=== PATIENT | female | born 1995 | race Caucasian/White ===

== ENCOUNTER 2017-05-28 16:15 | Inpatient (IN) | payer OTHER ==
[2017-05-28] MEDS ORDERED: Acetaminophen 500 MG TAB PO PRN (17:03)
[2017-05-28] MEDS ORDERED: Promethazine HCl 25 MG/ML VIAL IM PRN (17:03)
[2017-05-28] MEDS ORDERED: Ondansetron HCl/PF 4 MG/2 ML Vial IVP PRN (17:03)
[2017-05-28] MEDS: Lactated Ringer's 1,000 ML IV SCH ×2 (17:05→18:14)
[2017-05-28] MEDS ORDERED: Lidocaine 1% (PF) 30 ML VIAL ONE (17:14)
--- NOTE | 2017-05-28 17:20 | PDOC.LDHP ---
Labor and Delivery H&P Chief complaint: other (Bleeding) HPI: 22 y/o G1 at 33w2d, patient of Dr. Stern, presents with vaginal bleeding. Patient reports she had a sharp pain around 11 that resolved and then started bleeding. She reports soaking a pad. Denies any intercourse or trauma. Has had some mild low back pain but denies any LOF, ctx, or decreased FM. ROS neg for HEENT, cv, pulm, gi, gu, neuro, psych, skin, musculoskeletal or constitutional symptoms other than mentioned above. OB History Details: First Current complications: none Past Medical History: Denies Current medications: pre-[place] vitamins Previous surgical history: none, other ([place] teeth extraction) Allergies/Adverse Reactions: Allergies Allergy/AdvReac Type Severity Reaction Status Date / Time Sulfa (Sulfonamide Allergy Intermediate Hives Verified 05/28/17 17:25 Antibiotics) Social history: none - Physical Exam Vital signs reviewed and normal: yes General: NAD Lungs: nonlabored breathing Abdomen: gravid Extremeties: no edema FHT: category 1 (150s, mod variability, + accels, no decels) [place] contractions every: irregular - Vaginal Exam cm dilated: 0 (visually closed) Effacement: 0% Station: -3 - Assessment 22 y/o G1 at 33w2d with vaginal bleeding and contractions. No e/o SROM , abruption at this time. status reassuring with reactive NST and normal MICHAEL. Placenta appears anterior/fundal with no e/o previa on bedside ultrasound. - Plan Plan: observation in L&D -: Will do pad counts and start IV fluids for ctx. Celestone 12mg IV ordered q 24 hours. T&S, H/H, KB ordered. Discussed with Dr. Stern.
[2017-05-28 17:30] LABS: Hematocrit 33.4 % (36.0-47.0); Mean Platelet Volume 7.3 fL (7.4-10.4); Red Blood Cell (RBC) Count 3.61 mill/uL (4.20-5.40); White Blood Cell (WBC) Count 14.3 thou/uL (4.8-10.8)
[2017-05-28 17:39] VITALS: BMI 26.6
[2017-05-28] MEDS: Betamet Acet/Betamet Na Ph 30 MG/5 ML VIAL IM SCH (18:13)
[2017-05-29] MEDS: Lactated Ringer's 1,000 ML IV SCH ×2 (00:28→08:07)
--- NOTE | 2017-05-29 08:45 | PDOC.LDPN ---
Labor & Delivery Progress Note - Subjective Subjective: comfortable (Denies feeling any ctx. No bright red bleeding, only small amount of brown blood on pad overnight. Good FM. No LOF. ) - Objective Vital signs reviewed and normal: yes General: NAD Uterine fundus: non tender SVE: deferred, cx closed yesterday on exam FHT: category 1 (140s, mod so, +accels, no decels ) [place] contractions every: occasional ctx, pt does not feel them - Assessment (1) 33 weeks gestation of Code(s): Z3A.33 - 33 WEEKS GESTATION OF Current Visit: Yes Status : Acute (2) Vaginal bleeding in Code(s): O46.90 - ANTEPARTUM HEMORRHAGE, UNSPECIFIED, UNSPECIFIED TRIMESTER Current Visit: Yes Status: Acute -: Rhogam today Complete abruption labs today. No clinical suspicion for abruption at this time , however, for completeness. Official sono today Monitor today and plan for d/c home if no bleeding today and s/p BMTZ course. Continue IVF.
[2017-05-29 11:37] LABS: Fibrinogen 567 mg/dL (253-463)
--- NOTE | 2017-05-29 14:31 | ULT ---
ULTRASOND OB COMPLETE STANDARD AND ULTRASOUND BIOPHYSICAL PROFILE: HISTORY: Followup bleeding. COMPARISON: None. TECHNIQUE: Real-time, holbrook scale, and color evaluation of the gravid uterus performed with a curvilinear transd ucer. FINDINGS: The placenta is anterior and appears normal. Single viable intrauterine with average ultr asound age 34 week 2 day. Estimated date of delivery is 07/08/17. Estimated weight is 5 poun ds 0 ounce, 53rd percentile. Cervical length is 3.3 cm. heart rate documented at 130 b.p.m. Biparietal diameter 35 weeks 1 day, 8.66 cm Head circumference 35 weeks 1 day, 30.84 cm Abdominal circumference 33 weeks 2 days,29.32 cm Femur length 33 weeks 5 days, 6.52 cm Biophysical profile score is 8/8. position is vertex. Placenta is anterior. Amniotic fluid index is 9.1. IMPRESSION: 1. Biophysical profile score 8/8. 2. Single viable intrauterine with average ultrasound age 34 weeks 2 days, estimated date of delivery 07/08/17. 3. Estimated weight is 5 pounds 0 ounces, 53rd percentile. POS: [facility]
[2017-05-29 14:48] VITALS: TEMP 98.5
[2017-05-29] MEDS: Betamet Acet/Betamet Na Ph 30 MG/5 ML VIAL IM SCH (18:30)
--- NOTE | 2017-05-30 02:45 | DIS ---
DATE OF ADMISSION: 05/28/2017 DATE OF DISCHARGE: 05/29/2017 ADMISSION DIAGNOSES: 1. A 33-week intrauterine . 2. Vaginal bleeding affecting in the third trimester. 3. Rh negative status. DISCHARGE DIAGNOSES: 1. A 33-week intrauterine . 2. Vaginal bleeding affecting in the third trimester. 3. Rh negative status. ADMITTING PHYSICIAN: Daniella Ansari M.D. DISCHARGING PHYSICIAN: Kristi Stern D.O. BRIEF HOSPITAL COURSE: Ms. Cecilia Foy is a 22-year-old G1, P0 at 33 weeks and 2 days, who underw ent evaluation and observation due to vaginal bleeding in . Patient was observed overnight and given IV fluids. She did have contractions, although they were not persistent and she had progressed into labor. The patient was evaluated by Dr. Ansari, noting a small amount of vaginal bleeding on exam. However, she has not had any additional bleeding throughout her observ ation, with the exception of a small amount of brown discharge. status remained reassuring wi th a BPP of 8/8 and a normal appearing placenta on sonogram today. The heart tone evaluation has also remained reactive. The patient remains asymptomatic without any pain. Her laboratory asse ssment was normal with negative placental abruption labs and a negative Kleihauer-Betke test. The p atient was given RhoGAM during her stay due to Rh negative. She was also given a course of betameth asone for lung maturity due to the vaginal bleeding at 33 weeks' gestation. As stated above, the patient has remained quiescent throughout the day and fetus was remained reassuring and she was stable for discharge home. FOLLOWUP: The patient will receive follow up in 3-5 days. ACTIVITY: Reviewed the importance of pelvic rest. No heavy lifting, pushing or pulling and recomme nded resting for the next few days at home. MEDICATIONS: Continue vitamins. DIET: Regular diet. DISPOSITION: Discharged to home.
== END 2017-05-29 19:00 | disposition home or self-care (01) | DRG 782 ==
LOC: L&D/OP 16:15 → L&D 05-29 01:24
PROVIDERS: ADMIT Obstetrics & Gynecology; ATTEND Obstetrics & Gynecology
PROC: 3E0334Z Introduction of Serum, Toxoid and Vaccine into Peripheral Vein, Percutaneous Approach (ICD-10-PCS; principal; 2017-05-29)
DX: O46.93 Antepartum hemorrhage, unspecified, third trimester (principal); O60.03 Preterm labor without delivery, third trimester; O36.0930 Maternal care for other rhesus isoimmunization, third trimester, not applicable or unspecified; Z3A.33 33 weeks gestation of pregnancy
CPT/HCPCS: 36415; 76805; 76815; 76819; 85027; 85362; 85384; 85460; 86850; 86870; 86900; 86901; 90384; 96372; A4216; J0702; J2001

== ENCOUNTER 2017-07-08 14:30 | Day surgery (SDC) | payer OTHER ==
[2017-07-08 15:02] VITALS: BMI 28.2
[2017-07-08 15:32] VITALS: BP 114/60; TEMP 98
[2017-07-08 15:34] LABS: Amnisure Test No Membranes Rupture (No Rupture)
[2017-07-08] MEDS ORDERED: FLU VACC QS2017-18 36 mo. & older 0.5 ML SYRINGE IM ONE (18:00)
== END 2017-07-08 15:55 | disposition home or self-care (01) ==
LOC: L&D/OP 14:30
PROVIDERS: ATTEND Obstetrics & Gynecology
DX: O26.899 Other specified pregnancy related conditions, unspecified trimester (principal); Z88.2 Allergy status to sulfonamides; Z79.899 Other long term (current) drug therapy; Z3A.00 Weeks of gestation of pregnancy not specified
CPT/HCPCS: 84112

== ENCOUNTER 2017-07-17 23:08 | Inpatient (IN) | payer OTHER ==
[2017-07-17 23:39] VITALS: BMI 29.3
[2017-07-18 00:11] LABS: Amnisure Test RUPTURE DETECTED (No Rupture)
[2017-07-18] MEDS ORDERED: Lidocaine 1% (PF) 30 ML VIAL SC PRN (00:23)
[2017-07-18] MEDS ORDERED: Ibuprofen 800 MG TAB PO PRN (00:23)
[2017-07-18] MEDS ORDERED: LR / Pitocin 40 units/1000 ml 1,000 ML IV PRN (00:23)
[2017-07-18] MEDS ORDERED: Ondansetron HCl/PF 4 MG/2 ML Vial IVP PRN ×3 (00:23→20:38)
[2017-07-18] MEDS ORDERED: Lactated Ringer's 1,000 ML IV SCH (00:30)
[2017-07-18] MEDS ORDERED: LR 500 ML/Oxytocin 10 units 500 ML IV SCH ×2 (00:30)
[2017-07-18 01:17] LABS: Hematocrit 33.6 % (36.0-47.0); Mean Platelet Volume 8.1 fL (7.4-10.4); Red Blood Cell (RBC) Count 3.67 mill/uL (4.20-5.40); White Blood Cell (WBC) Count 17.6 thou/uL (4.8-10.8)
[2017-07-18] MEDS ORDERED: Fentanyl 4 mcg/Marc 0.1% Cadd 100 ML ONE (01:44)
[2017-07-18] MEDS: Lactated Ringer's 1,000 ML IV SCH ×3 (02:06→21:42)
[2017-07-18] MEDS ORDERED: diphenhydrAMINE 50 MG/ML VIAL IVP PRN (02:35)
[2017-07-18] MEDS ORDERED: Naloxone HCl 0.4 mg/ml Vial IVP PRN ×2 (02:35)
[2017-07-18] MEDS ORDERED: Lactated Ringer's 500 ML IV PRN (02:35)
[2017-07-18] MEDS ORDERED: Eucerin (Mineral Oil/Petrolatum,White) 30 gm Jar TOP PRN (02:35)
[2017-07-18] MEDS ORDERED: ePHEDrine/0.9% NaCl/PF SYRINGE 50 mg/10 ml SLOW IVP PRN (02:35)
[2017-07-18] MEDS ORDERED: Promethazine HCl 25 MG/ML VIAL IM PRN ×2 (02:35→20:38)
[2017-07-18] MEDS ORDERED: Communication Order-Pharmacy FS SCH (02:45)
[2017-07-18] MEDS: Fentanyl 4mcg/Marcaine 0.1% Cassette 100 ML EPIDURAL SCH ×2 (08:37→14:07)
[2017-07-18] MEDS ORDERED: Dextrose 5%-Lactated Ringers 1,000 ML IV SCH (09:30)
[2017-07-18] MEDS ORDERED: LR 500 ML/Oxytocin 10 units 500 ML IVPB SCH (09:30)
[2017-07-18] MEDS: Acetaminophen 325 MG TAB PO PRN ×2 (11:18→15:11)
--- NOTE | 2017-07-18 12:56 | PDOC.LDHP ---
Labor and Delivery H&P Chief complaint: loss of fluid HPI: 22yo at 40w4d c/o LOF and painful ctx. Overnight changed from 1-->5cm but has stalled out and pitocin was started at a low level. FHT have been Cat 1-2 with intermittent min btbv and occ late decels that respond to resuscitation. Recently mom spiked fever to 101 despite giving tylenol for CARBONE 30min prior. Current gestational age (weeks): 40 Grav: 1 Para: 0 Current complications: none Abnormal US findings: No Past Medical History: denies Current medications: pre- vitamins Previous surgical history: other ([place] teeth) Allergies/Adverse Reactions: Allergies Allergy/AdvReac Type Severity Reaction Status Date / Time Sulfa (Sulfonamide Allergy Intermediate Hives Verified 07/18/17 00:29 Antibiotics) - Physical Exam Vital signs reviewed and normal: yes General: NAD Heart: RRR Lungs: CTAB Abdomen: gravid Extremeties: no edema FHT: category 1 - OB Labs Blood type: O RH: negative Antibody Screen: negative HIV: negative RPR: negative HEPSAg: negative 1 hour GCT: negative GBS: negative Rubella: non-immune - Assessment L&D Assessment: term rupture in membranes - Plan Plan: admit to L&D, labor augmentation if indicated, informed consent obtained, anesthesia consult for pain management -: Antibiotics for chorioamnionitis O neg RH screening MMR prior to DC
[2017-07-18] MEDS: Ampicillin 2 GM, Syringe 5.2 ML in Sterile Water 14.8 ML SLOW IVP SCH ×2 (13:30→21:41)
[2017-07-18] MEDS ORDERED: Gentamicin Sulfate 120 MG in Premix Bag 1 BAG IVPB SCH (13:30)
[2017-07-18] MEDS ORDERED: Oxytocin 10 UNITS/ML VIAL ONE (16:10)
[2017-07-18] MEDS ORDERED: Misoprostol 200 MCG TAB ONE (16:10)
[2017-07-18 16:13] LABS: Base Excess -9.1 mEq/L (0 (+/- 2.5))
--- NOTE | 2017-07-18 16:22 | PDOC.OPDEL ---
OB Operative/Delivery Note Delivery Dr/Surgeon: David Assist: Parker Pre-Delivery Diagnosis: non-reassuring tracing, ruptured membrane Procedure/Post Delivery Dx: operative vaginal delivery (VE) Weeks gestation: 40 Anesthesia: epidural - Findings A Sex: female Weight: 7 lb 9 oz - 1 min: 8 - 5 min: 9 - Additional Findings/Plan Placenta delivered: spontaneous Repaired Obstetrical Laceration: episiotomy (mediolateral, repaired with 2-0 vicryl in usual fashion) Estimated blood loss: 300 Compilations/Other Findings: Pt C/C/+3, OA presentation, bradycardia to 60s, did not respond to resuscitation, FSE placed and confirmed FHR, vacuum called for and applied median flexing 1cm anterior to posterior fontanelle. Maternal tissue extracted and with maternal pushing efforts and contractions traction was placed on vacuum , noting descent with each pull. No popoffs, delivered in 4 contractions, total megan time was 4min. Gases sent. Post delivery plan: routine recovery
[2017-07-18] MEDS ORDERED: Ampicillin 2 GM in Sodium Chloride 0.9% 100 ML IVPB SCH (18:00)
[2017-07-18] MEDS ORDERED: diphenhydrAMINE 25 MG CAP PO PRN (20:38)
[2017-07-18] MEDS ORDERED: Lanolin Ointment 7 GM TUBE TOP PRN (20:38)
[2017-07-18] MEDS ORDERED: Benzocaine/Menthol 20-0.5% 60 ML CAN TOP PRN (20:38)
[2017-07-18] MEDS ORDERED: Preparation H Ointment 28 GM TUBE PR PRN (20:38)
[2017-07-18] MEDS ORDERED: LR / Pitocin 40 units/1000 ml 1,000 ML IV SCH (20:38)
[2017-07-18] MEDS ORDERED: Bisacodyl 10 MG SUPP PR PRN (20:38)
[2017-07-18] MEDS ORDERED: Adacel (T-DAP) 0.5 ML VIAL IM ONE (20:38)
[2017-07-18] MEDS ORDERED: HYDROcodone/Acetaminophen 5/325 mg Tablet PO PRN ×2 (20:38)
[2017-07-18] MEDS ORDERED: Milk Of Magnesia 30 ML UDCUP PO PRN (20:38)
[2017-07-18] MEDS: Ferrous Sulfate 325 MG TAB PO SCH (21:37)
[2017-07-18] MEDS: Ibuprofen 800 MG TAB PO SCH (21:46)
[2017-07-18] MEDS: Docusate (Surfak) 240 MG CAP PO SCH (21:46)
[2017-07-19] MEDS: Ibuprofen 800 MG TAB PO SCH ×3 (04:52→21:11)
[2017-07-19 05:56] LABS: Hematocrit 32.6 % (36.0-47.0); Mean Platelet Volume 7.9 fL (7.4-10.4); Red Blood Cell (RBC) Count 3.48 mill/uL (4.20-5.40); White Blood Cell (WBC) Count 19.3 thou/uL (4.8-10.8)
[2017-07-19] MEDS: Ferrous Sulfate 325 MG TAB PO SCH ×2 (08:45→09:36)
[2017-07-19] MEDS: Docusate (Surfak) 240 MG CAP PO SCH ×2 (08:46→21:11)
[2017-07-19] MEDS: Prenatal Vitamin 1 TAB PO SCH (08:46)
[2017-07-19] MEDS ORDERED: Bupivacaine/Epinephrine 0.25% 30 ML VIAL ONE (09:28)
--- NOTE | 2017-07-19 16:33 | PDOC.PP ---
Post Progress Note Post Day #: 1 PO intake tolerated: yes Flatus: yes Ambulation: yes Vital Signs (12 hours) Temp Pulse Resp BP 07/19/17 12:57 98.6 F 97 18 116/66 07/19/17 11:00 97.8 F 82 16 07/19/17 08:30 97.8 F 82 16 110/54 L 07/19/17 07:45 98.1 F 67 18 07/19/17 04:42 98.1 F 67 18 113/61 Weight Weight 182 lb - Physical Examination General: NAD Cardiovascular: RRR Respiratory: non-labored breathing Abdominal: no distention, appropriately TTP Fundus firm & at: umb Skin: no rash Neurological: no gross focal deficits Psychiatric: normal affect Result Diagrams: 07/19/17 05:26 Additional Labs: Post Labs Hep Bs Antigen Non-Reactive S/CO (NonReactive) 07/18/17 00:50 (1) Term delivered Code(s): O80 - ENCOUNTER FOR FULL-TERM UNCOMPLICATED DELIVERY Status: Acute - Assessment/Plan VSSAF Doing well, afebrile, no e/o ongoing infection following chorio during labor. Lochia < menses Rh pos RNI MMR prior to DC Cont PP care, home tomorrow
[2017-07-19] MEDS ORDERED: Varicella virus, LIVE 0.5 ML VIAL SC ONE (18:00)
[2017-07-19] MEDS ORDERED: Measles/Mumps/Rubella 10 MCG/0.5 ML VIAL SC ONE (18:00)
[2017-07-19] MEDS ORDERED: [UNRECOGNIZED DRUG - OTHER] SC ONE (18:00)
[2017-07-19 23:40] VITALS: TEMP 98.1
[2017-07-20] MEDS: Ibuprofen 800 MG TAB PO SCH ×2 (06:06→13:14)
[2017-07-20] MEDS: Ferrous Sulfate 325 MG TAB PO SCH (07:05)
--- NOTE | 2017-07-20 08:30 | PDOC.PP ---
Post Progress Note Post Day #: 2 (DISCHARGE NOTE) Subjective: Doing well PO intake tolerated: yes Flatus: yes Ambulation: yes Vitals reviewed and all normal. BPs 110s/50-60s, pulse 80s Weight Weight 182 lb - Physical Examination General: NAD Cardiovascular: no m/r/g Respiratory: clear to auscultation bilaterally Abdominal: lochia, no distention Extremities: negative homans (B) Neurological: no gross focal deficits Psychiatric: A&Ox3, normal affect Result Diagrams: 07/19/17 05:26 Additional Labs: Post Labs Hep Bs Antigen Non-Reactive S/CO (NonReactive) 07/18/17 00:50 (1) Term delivered Code(s): O80 - ENCOUNTER FOR FULL-TERM UNCOMPLICATED DELIVERY Status: Acute - Assessment/Plan Routine care. Vitals reviewed. OK for discharge home and follow up in 4 weeks per routine. Motrin RX given for prn use.
--- NOTE | 2017-07-20 08:57 | PDOC.EVN ---
Event Note - Event Note Event Note: 07/20/2017 DISCHARGE NOTE Patient seen and examined on day of DISCHARGE, 07/20/2017. Patient underwent low vaccumm assisted delivery by Dr Hernandez, done for decelerations and bradycardia. Patient had an uneventful and normal course. Discharge medications: Motrin prn. Instructions: Follow up in 4 weeks with [facility].,
[2017-07-20] MEDS: Prenatal Vitamin 1 TAB PO SCH (09:22)
[2017-07-20] MEDS: Docusate (Surfak) 240 MG CAP PO SCH (09:22)
[2017-07-20 10:48] VITALS: BP 112/70
== END 2017-07-20 13:25 | disposition home or self-care (01) | DRG 775 ==
LOC: L&D/OP 23:08 → L&D 07-18 00:34 → 3SW 07-18 20:20
PROVIDERS: ADMIT Obstetrics & Gynecology; ATTEND Obstetrics & Gynecology
PROC: 10D07Z6 Extraction of Products of Conception, Vacuum, Via Natural or Artificial Opening (ICD-10-PCS; principal; 2017-07-18)
PROC: 10H073Z Insertion of Monitoring Electrode into Products of Conception, Via Natural or Artificial Opening (ICD-10-PCS; 2017-07-18)
PROC: 0W8NXZZ Division of Female Perineum, External Approach (ICD-10-PCS; 2017-07-18)
PROC: 3E0334Z Introduction of Serum, Toxoid and Vaccine into Peripheral Vein, Percutaneous Approach (ICD-10-PCS; 2017-07-19)
DX: O76 Abnormality in fetal heart rate and rhythm complicating labor and delivery (principal); O41.1230 Chorioamnionitis, third trimester, not applicable or unspecified; O26.893 Other specified pregnancy related conditions, third trimester; Z3A.40 40 weeks gestation of pregnancy; Z37.0 Single live birth; Z67.41 Type O blood, Rh negative
CPT/HCPCS: 36415; 82805; 84112; 85027; 85461; 86780; 87070; 87205; 87340; 88307; 90384; 90710; 90716; 96372; A4216; J0290; J1200; J1580; J2001; J2405; J2590; J7120

== ENCOUNTER 2018-04-29 15:07 | Outpatient (CLI) | payer OTHER | END 2018-04-29 15:08 | disposition home or self-care (01) | LOC: BICULT 15:07 | PROVIDERS: ATTEND Obstetrics & Gynecology | DX: O91.23 Nonpurulent mastitis associated with lactation (principal) ==

== ENCOUNTER 2018-10-09 10:40 | Outpatient (CLI) | payer OTHER ==
--- NOTE | 2018-10-09 11:57 | ULT ---
LIMITED LEFT BREAST ULTRASOUND: Date: 10/09/18 PROVIDED CLINICAL HISTORY: 6 month follow-up. FINDINGS: Limited sonographic interrogation of the 2-3 o'clock position of the left breast performed in the reg ion of prior mammographic concern. Interval decrease in the circumscribed hypoechoic focus at the 3 o 'clock position of the left breast compatible with intramammary lymph node. IMPRESSION: BIRADS Category 2 - Benign findings. POS: OFF
== END 2018-10-09 10:41 | disposition home or self-care (01) ==
LOC: BICULT 10:40
PROVIDERS: ATTEND Obstetrics & Gynecology
DX: R92.8 Other abnormal and inconclusive findings on diagnostic imaging of breast (principal)